=== PATIENT | male | born 1980 | race Caucasian/White ===

== ENCOUNTER 2018-07-26 15:20 | Emergency (ER) | payer MEDICAID, OTHER ==
[2018-07-26 16:55] LABS: ADD MAN DIFF? NO
[2018-07-26 17:05] LABS: WHITE BLOOD COUNT 10.5 10^3/ul (4.8-10.8)
[2018-07-26 17:05] LABS: BASOPHIL # 0.1 10^3/ul (0.0-0.1); BASOPHILS % 0.7 % (0.0-2.0); EOSINOPHILS # 0.2 10^3/ul (0.0-0.5); EOSINOPHILS % 2.2 % (0.0-7.0); HEMATOCRIT 46.9 % (42.0-52.0); HEMOGLOBIN 16.7 g/dl (14.0-18.0); LYMPHOCYTES # 2.7 10^3/ul (0.8-2.9); LYMPHOCYTES % 25.8 % (15.0-51.0); MEAN CORPUSCULAR HGB CONC 35.6 g/dl (32.0-37.0); MONOCYTE # 0.6 10^3/ul (0.3-0.9); MONOCYTES % 5.6 % (0.0-11.0); NEUTROPHIL # 6.9 10^3/ul (1.6-7.5); NEUTROPHILS % 65.5 % (39.0-77.0); PLATELET COUNT 248 10^3/UL (140-415); RED BLOOD COUNT 5.39 10^6/ul (4.70-6.10); RED CELL DISTRIBUTION WIDTH 12.6 % (11.5-14.5)
[2018-07-26 17:24] LABS: ALANINE AMINOTRANSFERASE 158 IU/L (13-69); ALBUMIN 4.9 g/dl (3.3-4.9); ALBUMIN/GLOBULIN RATIO 1.16; ALKALINE PHOSPHATASE 136 IU/L (42-121); ANION GAP 17 (5-13); ASPARTATE AMINO TRANSFERASE 124 IU/L (15-46); BILIRUBIN,INDIRECT 0.4 mg/dl (0-1.1); BILIRUBIN,TOTAL 0.4 mg/dl (0.2-1.3); BLOOD UREA NITROGEN 12 mg/dl (7-20); CALCIUM 8.9 mg/dl (8.4-10.2); CARBON DIOXIDE 25 mmol/L (21-31); CHLORIDE 104 mmol/L (97-110); CREATININE 1.11 mg/dl (0.61-1.24); Estimated GFR > 60 mL/min (>60); GLUCOSE 101 mg/dl (70-220); INR 0.91; LIPASE 166 U/L (23-300); POTASSIUM 3.7 mmol/L (3.5-5.1); PROTIME 12.3 Sec (11.9-14.9); SODIUM 146 mmol/L (135-144); TOTAL PROTEIN 9.1 g/dl (6.1-8.1)
[2018-07-26] MEDS: ONDANSETRON 4 MG INJ IV (17:24)
[2018-07-26] MEDS: SOD CHLORIDE 0.9% 1,000 ML IV (17:24)
[2018-07-26 17:25] LABS: PARTIAL THROMBOPLASTIN TIME 26.8 Sec (23.0-35.0)
[2018-07-26] MEDS: IOHEXOL 300MG/ML 150 ML BTL (18:21)
[2018-07-26] MEDS: SOD CHLORIDE 0.9% 100 ML (18:21)
[2018-07-26 18:56] LABS: URINE BLOOD (Dip) POC 1+ (NEGATIVE); URINE GLUCOSE (Dip) POC Negative (NEGATIVE); URINE KETONES (Dip) POC 1+ (NEGATIVE); URINE LEUKOCYTE EST (Dip) POC Negative (NEGATIVE); URINE NITRITE (Dip) POC Negative (NEGATIVE); URINE TOTAL PROTEIN POC Trace (NEGATIVE)
[2018-07-26 18:56] LABS: URINE PH (Dip) POC 6.5 (5.0-8.5)
[2018-07-26] MEDS: LORAZEPAM 2 MG INJ IV (19:17)
== END 2018-07-26 19:44 | disposition home or self-care (01) ==
LOC: E/R 15:20
DX: R10.13 Epigastric pain (principal); F10.10 Alcohol abuse, uncomplicated; K92.0 Hematemesis; K92.1 Melena; Q89.3 Situs inversus; R94.5 Abnormal results of liver function studies; R11.10 Vomiting, unspecified
CPT/HCPCS: 36415; 71045; 74177; 80053; 80307; 81003; 83690; 85025; 85610; 85730; 86850; 86900; 86901; 93005; 96361; 96374; 96375; 99285-25

== ENCOUNTER 2019-05-10 12:44 | Emergency (ER) | payer MEDICAID ==
[2019-05-10] MEDS: HYDROCODONE/APAP (5/325) TAB PO (14:38)
== END 2019-05-10 15:01 | disposition home or self-care (01) ==
LOC: FTE 12:44
DX: S52.502A Unspecified fracture of the lower end of left radius, initial encounter for closed fracture (principal); W18.39XA Other fall on same level, initial encounter; Y92.9 Unspecified place or not applicable
CPT/HCPCS: 29125; 73080-LT; 73090; 73110-LT; 73130-LT; 99283-25